=== PATIENT | male | born 1975 | race Caucasian/White ===

== ENCOUNTER 2017-11-25 17:28 | Emergency (ER) | payer OTHER, SELFPAY | END 2017-11-25 18:04 | disposition home or self-care (01) | PROVIDERS: Emergency Provider Nurse Practitioner Family; Family Provider Family Medicine; Visit Provider Nurse Practitioner Family | DX: R05 Cough (principal); I10 Essential (primary) hypertension | CPT/HCPCS: 87804; 99201 ==

== ENCOUNTER 2018-01-17 15:11 | Emergency (ER) | payer OTHER, SELFPAY ==
[2018-01-17 15:30] VITALS: BP 144/88; PULSE 88; RESP 20; TEMP 36.8; O2SAT 98; BMI 33.0
[2018-01-17 15:43] VITALS: BP 140/82; PULSE 88; RESP 20; TEMP 36.8
--- NOTE | 2018-01-17 15:44 | HMH.EDUTC ---
[facility] [place] Clinical Impression: Skin problem Disposition: Home, Self-Care Condition on Discharge: Good Instructions: DI for Abrasion Additional Instructions: Keep area clean and dry Apply medication as prescribed REturn if needed Follow up with family doctor if you notice and redness, streaks swelling or warmth to the area or straight to ER Prescriptions: Bacitracin [Bacitracin Oint 0.9GM UDP] 1 each TP TID #30 packet Referrals: Ceasar Guerra MD [Primary Care Provider] - Time of Disposition: 16:05 Medical Decision Making - Medical Records Medical records reviewed: Yes: I reviewed the patient's medical records. Vital Signs: 01/17/18 15:30 01/17/18 15:43 Temperature 98.2 F 98.2 F Temperature Source Temporal Artery Scan Pulse Rate 88 Pulse Rate [Right] 88 Respiratory Rate 20 20 Blood Pressure 140/82 Blood Pressure [Right Arm] 144/88 Blood Pressure Mean [Right Arm] 106 Blood Pressure Source [Right Arm] Automatic Cuff Blood Pressure Position [Right Arm] Sitting 02 Sat by Pulse Oximetry 98 Oxygen Delivery Method Room Air - Alexander Inquiry Pt receiving controlled substance: No Alexander was queried for this patient: No [facility] [place] - General Stated complaint: spot on left arm Mode of Arrival: Ambulatory Source of Information: Patient Limitations: No Limitations Description of Symptoms (Recalled from Triage Doc. by RN): SORE ON LEFT ARM X1 WK HEENT Symptoms (Recalled from RN notes): No Resp Symptoms (Recalled from RN notes): No Skin Symptoms (Recalled from RN notes): Yes MS Symptoms (Recalled from RN notes): No Functional Status (Recalled from RN notes): N - History of Present Illness Provider Complaint: Patient state that he has had a sore on his left upper arm for over a week States that area is not sore and looks like it may be healing because it has a scab on it but someone told him he needed to get it looked at because it could be a spider bite - Related Data Previous Rx's Medication Instructions Recorded Bacitracin [Bacitracin Oint 0.9GM 1 each TP TID #30 packet 01/17/18 UDP] Allergies Allergy/AdvReac Type Severity Reaction Status Date / Time No Known Allergies Allergy Verified 01/17/18 15:42 - Worker's Comp Is this a Worker's Comp case?: No [facility] History I have reviewed the patient's past medical history: Yes - Social History Alcohol Intake: never - Psychiatric History Expresses thoughts of harming self/others: None Suicide Plan Description: No Plan ROS Obtained: Yes All systems reviewed & no additional complaints Physical Exam - General General appearance: alert, in no apparent distress - ENT ENT exam: Present: normal exam, normal oropharynx, mucous membranes moist, TM's normal bilaterally, normal external ear exam - Respiratory Respiratory exam: Present: normal lung sounds bilaterally. Absent: respiratory distress - Cardiovascular Cardiovascular exam: Present: regular rate - Abdominal Exam Abdominal exam: Present: soft, normal bowel sounds. Absent: distention, tenderness, guarding - Neurological Exam Neurological exam: Present: alert, oriented X3 - Skin Skin exam: Present: other - Expanded Skin Exam Type of lesion: Present: other Description: Absent: tenderness, swelling, discharge 1 - small 1x1 scabbed area - Other Other exam information: Small scabbed over sore with no swelling, or redness on left upper arm that appears to be healing, looks like a scratch area Patient state that it has been there for over a week. Area appears to be healing
--- NOTE | 2018-01-17 15:50 | ED_ITS ---
[facility] [place] Clinical Impression: Skin problem Disposition: Home, Self-Care Condition on Discharge: Good Instructions: DI for Abrasion Additional Instructions: Keep area clean and dry Apply medication as prescribed REturn if needed Follow up with family doctor if you notice and redness, streaks swelling or warmth to the area or straight to ER Prescriptions: Bacitracin [Bacitracin Oint 0.9GM UDP] 1 each TP TID #30 packet Referrals: Ceasar Guerra MD [Primary Care Provider] - Time of Disposition: 16:05 Medical Decision Making - Medical Records Medical records reviewed: Yes: I reviewed the patient's medical records. Vital Signs: 01/17/18 15:30 01/17/18 15:43 Temperature 98.2 F 98.2 F Temperature Source Temporal Artery Scan Pulse Rate 88 Pulse Rate [Right] 88 Respiratory Rate 20 20 Blood Pressure 140/82 Blood Pressure [Right Arm] 144/88 Blood Pressure Mean [Right Arm] 106 Blood Pressure Source [Right Arm] Automatic Cuff Blood Pressure Position [Right Arm] Sitting 02 Sat by Pulse Oximetry 98 Oxygen Delivery Method Room Air - Alexander Inquiry Pt receiving controlled substance: No Alexander was queried for this patient: No [facility] [place] - General Stated complaint: spot on left arm Mode of Arrival: Ambulatory Source of Information: Patient Limitations: No Limitations Description of Symptoms (Recalled from Triage Doc. by RN): SORE ON LEFT ARM X1 WK HEENT Symptoms (Recalled from RN notes): No Resp Symptoms (Recalled from RN notes): No Skin Symptoms (Recalled from RN notes): Yes MS Symptoms (Recalled from RN notes): No Functional Status (Recalled from RN notes): N - History of Present Illness Provider Complaint: Patient state that he has had a sore on his left upper arm for over a week States that area is not sore and looks like it may be healing because it has a scab on it but someone told him he needed to get it looked at because it could be a spider bite - Related Data Previous Rx's Medication Instructions Recorded Bacitracin [Bacitracin Oint 0.9GM 1 each TP TID #30 packet 01/17/18 UDP] Allergies Allergy/AdvReac Type Severity Reaction Status Date / Time No Known Allergies Allergy Verified 01/17/18 15:42 - Worker's Comp Is this a Worker's Comp case?: No [facility] History I have reviewed the patient's past medical history: Yes - Social History Alcohol Intake: never - Psychiatric History Expresses thoughts of harming self/others: None Suicide Plan Description: No Plan ROS Obtained: Yes All systems reviewed & no additional complaints Physical Exam - General General appearance: alert, in no apparent distress - ENT ENT exam: Present: normal exam, normal oropharynx, mucous membranes moist, TM's normal bilaterally, normal external ear exam - Respiratory Respiratory exam: Present: normal lung sounds bilaterally. Absent: respiratory distress - Cardiovascular Cardiovascular exam: Present: regular rate - Abdominal Exam Abdominal exam: Present: soft, normal bowel sounds. Absent: distention, tenderness, guarding - Neurological Exam Neurological exam: Present: alert, oriented X3 - Skin Skin exam: Present: other - Expanded Skin Exam Type of lesion: Present: other Description: Absent: tenderness, swell
== END 2018-01-17 16:05 | disposition home or self-care (01) ==
PROVIDERS: Emergency Provider Nurse Practitioner; Family Provider Family Medicine; PCP Family Medicine
DX: L08.89 Other specified local infections of the skin and subcutaneous tissue (principal)
CPT/HCPCS: 99202

== ENCOUNTER → 2020-10-23 08:08 | Outpatient (CLI) | payer OTHER, SELFPAY ==
--- NOTE | 2020-10-23 08:09 | CA_ITS ---
APPROVED REPORT Production Manager: Emma Martell RVT Laterality: Bilateral Study Quality: Good Indications: facial numbness,LT HAND NUMBNESS Risk Factors Hypertension: Doppler Spectral Velocity Analysis ECA (R) 96.20/21.40 cm/s ECA (L) 104.80/15.70 cm/s dICA (R) 82.30/37.40 cm/s dICA (L) 93.50/38.90 cm/s Amie (R) 64.20/31.00 cm/s Amie (L) 84.50/35.90 cm/s pICA (R) 80.20/28.90 cm/s pICA (L) 93.50/28.40 cm/s dCCA (R) 83.40/24.60 cm/s dCCA (L) 83.10/27.70 cm/s pCCA (R) 79.10/17.10 cm/s pCCA (L) 111.50/29.20 cm/s Vert (R) 47.00/13.90 cm/s Vert (L) 40.60/15.00 cm/s ICA/CCA 0.99 ICA/CCA 1.13 Findings Study suggests no evidence of stenosis seen in the bilateral internal cartoid arteries. Antegrade flow seen bilateral vertebral arteries. Conclusion Study suggests no evidence of stenosis seen in the bilateral internal cartoid arteries. Antegrade flow seen bilateral vertebral arteries. Electronically signed by : Natan Garcia MD 10/23/2020 15:13:02
== END ==
LOC: RT 08:09
PROVIDERS: PCP Family Medicine; Visit Provider Internal Medicine Cardiovascular Disease
DX: R06.00 Dyspnea, unspecified (principal); R07.9 Chest pain, unspecified; R20.0 Anesthesia of skin; I10 Essential (primary) hypertension; R60.0 Localized edema
CPT/HCPCS: 93306; 93880

== ENCOUNTER → 2020-12-07 17:54 | Outpatient (CLI) | payer OTHER, SELFPAY | PROVIDERS: PCP Family Medicine; Visit Provider Internal Medicine Cardiovascular Disease | DX: R06.81 Apnea, not elsewhere classified (principal); R06.00 Dyspnea, unspecified; R07.9 Chest pain, unspecified; R60.0 Localized edema; R20.0 Anesthesia of skin; I10 Essential (primary) hypertension | CPT/HCPCS: 95806 ==

== ENCOUNTER 2022-02-04 10:26 | Emergency (ER) | payer OTHER, SELFPAY ==
[2022-02-04 10:27] VITALS: BP 159/85; PULSE 81; RESP 18; TEMP 36.7; O2SAT 98; BMI 38.6
--- NOTE | 2022-02-04 10:38 | ECG_ITS ---
APPROVED REPORT Exam: Resting ECG HR:87 bpm ECG Measurements Heart Rate 87 AXES FL 160 P 71 QRSd 104 QRS -64 QT 358 T 69 QTc 403 Conclusion SINUS RHYTHM LEFT ANTERIOR FASCICULAR BLOCK [QRS AXIS <= -45, QR IN I, RS IN II] ABNORMAL ECG UNCONFIRMED REPORT Electronically signed by : Oumar Aguilar MD 02/04/2022 17:49:28
--- NOTE | 2022-02-04 10:42 | PC.NURSE ---
ed doc at bedside
[2022-02-04 10:43] VITALS: BMI 38.6
--- NOTE | 2022-02-04 10:54 | PC.NURSE ---
called dr lott per ed doc
--- NOTE | 2022-02-04 10:59 | PC.NURSE ---
ER at bedside for update on POC
--- NOTE | 2022-02-04 11:02 | HMH.EDGENADL ---
ED Disposition Clinical Impression: Numbness and tingling in left hand, Perioral numbness Disposition: Home, Self-Care Condition on Discharge: Good Additional Instructions: Please return to the ED as we discussed, specifically numbness, pain, difficulty walking or with coordination. Please see Dr. Guerra today at 430 Referrals: Ceasar Guerra MD [Primary Care Provider] - - Critical Care Critical Care Time: No Attestation: On 02/04/22, the high probability of a clinically significant, sudden or life threatening deterioration of the following system(s) required my full and direct attention, intervention and personal management. The time I documented below is in addition to time spent performing reported procedures but includes the following listed in this critical care notation. Medical Decision Making - Medical Records Medical records reviewed: Yes: I reviewed the patient's medical records. - Alexander Inquiry Pt receiving controlled substance: No Orders (Tests/Meds): ED MEDICATIONS Generic Name Dose Route Start Last Admin Trade Name Freq PRN Reason Stop Dose Admin Sodium Chloride 10 ml 02/04/22 10:45 Sodium Chloride 0.9% 10ml Flush Syringe IV 03/06/22 10:44 NEEDED PRN Maintain IV Site Medical Decision Narrative: Patient is a fairly healthy 46-year-old male presents the ED today for further evaluation of left hand and left-sided perioral numbness, patient is well-appearing nurse evaluation, somewhat hypertensive with blood pressure in the 150s over 90s, nontachycardic, no fever, no increased respiratory effort is well-appearing on exam. Patient symptoms are currently resolved, and avoid been occurring for 36 to that time, multiple etiologies considered for this including a differential of acute stroke, TIA, stuttering TIA, hypertensive emergency, stress response. Symptoms not necessarily correlate with a central cause. given that he is not currently having any neurologic deficits we did not need to investigate further under stroke protocol, and that he has no significant vital signs alterations in mental preceding history of severe nausea or vomiting, we do not suspect electrolyte abnormalities do not need to obtain blood work. I have discussed the case with Dr. Guerra from his primary care office, who will be able to see him at 430 today, as he has not seen a physician in some years on chart review. Patient was in primary care appointment at 4:15 today, I have discussed further symptoms of stroke with the patient including left-sided numbness, weakness, facial droop, confusion, and that it is very important to present as early as possible with the symptoms, patient education given on stroke and stroke treatment and management, given the patient is well-appearing and able to ambulate, will be able to be discharged at this time. General Adult HPI - General Stated complaint: numbness Time Seen by Provider: 02/04/22 10:33 - History of Present Illness HPI narrative: Patient 46-year-old male presents the ED today for evaluation of left fingertip numbness and perioral numbness which occurred earlier today. Patient has a history of hyperlipidemia, but has been in his physician in a couple of years, states that he does not have any history of diabetes, heart disease, non-smoker, no lung disease, was independently, but states that he is very busy at,, and is a high stress environment. Patient states that his numbness occurred in the left fingertips of all 5 fingers, states that this only occurred for 30 seconds to a minute not associated with any symptoms of weakness in the left upper extremity or left lower extremity, and he is not having any difficulty walking. Patient also states that he was having some left-sided perioral numbness, all of the symptoms of numbness in the hand and mouth have resolved within a minute, states that they have been very minimizing. Patient states he has been taking his stati
[2022-02-04 11:04] VITALS: BP 162/86; PULSE 81; RESP 18; O2SAT 98
[2022-02-04 11:10] VITALS: BP 162/86; PULSE 81; RESP 20; TEMP 36.7; O2SAT 98
== END 2022-02-04 11:11 | disposition home or self-care (01) ==
PROVIDERS: Emergency Provider Student in an Organized Health Care Education/Training Program; PCP Family Medicine
DX: R20.0 Anesthesia of skin (principal); I10 Essential (primary) hypertension; E78.5 Hyperlipidemia, unspecified
CPT/HCPCS: 93005; 99283

== ENCOUNTER → 2022-02-18 09:57 | Outpatient (CLI) | payer OTHER, SELFPAY ==
--- NOTE | 2022-02-18 10:00 | MR_ITS ---
FINAL REPORT CLINICAL HISTORY: PARESTHESIAS IN LT HAND, TEMPORAL HEADACHES X1-2 WEEKS. 27ML PROHANCE FINDINGS: Multiplanar MR imaging of the brain was performed without and with contrast. There is no evidence of intracranial hemorrhage or mass. No abnormal extra-axial fluid collection is seen. The ventricular size is within normal limits. There is no evidence of shift of the midline structures. The posterior fossa and brainstem have an unremarkable appearance. No area of abnormal restricted diffusion is identified. No abnormal contrast enhancement is seen. There is moderate mucoperiosteal thickening involving both maxillary sinuses, sphenoid, and ethmoid air cells consistent with chronic sinusitis. IMPRESSION: No acute intracranial abnormality identified. Chronic sinusitis. Reviewed, Interpreted and Dictated by Manny Abel MD Transcribed by Genet Matute Authenticated by Manny Abel MD on 02/18/2022 02:04:06 PM [facility]
== END ==
LOC: RAD 09:57
PROVIDERS: PCP Family Medicine; Visit Provider Family Medicine
DX: R20.2 Paresthesia of skin (principal)
CPT/HCPCS: 70553; A9576

== ENCOUNTER 2022-11-24 13:11 | Emergency (ER) | payer OTHER, SELFPAY ==
--- NOTE | 2022-11-24 14:21 | EXP.UTC ---
Discharge Plan Disposition Patient Disposition: Home, Self-Care Condition: Good Prescriptions Prescriptions: New ondansetron 4 mg Tablet,Disintegrating 4 mg PO Q8H PRN (Reason: Nausea) Qty: 20 0RF No Action losartan-hydrochlorothiazide 50-12.5 mg tablet 1 tab PO DAILY Qty: 90 3RF Referrals Follow up/Referrals: Ceasar Guerra MD [Primary Care Provider] - See instructions Activity Restrictions/Add. Instructions Additional Instructions/Restrictions: Drink plenty of fluids. Take tylenol or ibuprofen for pain or fever. Take the medication as directed. Follow up with your regular doctor. GO TO THE ER FOR ANY WORSENING SYMPTOMS Clinical Impressions Clinical Impression: Gastroenteritis Stand Alone Forms Stand Alone Forms: Work/School Release Instructions Patient Instructions: DI for Viral Gastroenteritis -- Adult, Ondansetron Discharge ED Provider: Geovanny Caceres [facility] General Stated complaint: Diarrhea Time Seen by Provider: 11/24/22 14:21 History of Present Illness Provider Complaint: He states that since early this morning he has had n/v/d. He has had abdominal cramping at times too. He denies any fever, but he has had chills. Related Data Previous Rx's Medication Instructions Recorded losartan 50 mg-hydrochlorothiazide 1 tab PO DAILY #90 tabs 11/05/21 12.5 mg tablet ondansetron 4 mg disintegrating 4 mg PO Q8H PRN Nausea #20 tabs 11/24/22 tablet Allergies Allergy/AdvReac Type Severity Reaction Status Date / Time No Known Allergies Allergy Verified 11/24/22 14:36 [facility] Disclaimer: The information contained in this section may have been updated after the patient was seen, as this information can be updated by other users. Social History Smoking Status: Never smoker alcohol intake: never substance use type: denies use current occupational status: employed Travel in the last 8 weeks: Inside the [place] current occupational exposures/hazards: No ROS Obtained: Yes All systems reviewed & no additional complaints except as documented Constitutional Constitutional: Denies chills, Denies fever(s) and Reports poor appetite ENT Ears, Nose, Mouth, and Throat: Denies dizziness and Denies sore throat Cardiovascular Cardiovascular: Denies dyspnea Respiratory Respiratory: Denies chest congestion, Denies cough and Denies dyspnea Gastrointestinal Gastrointestingal: Reports as per HPI; Denies abdominal pain, hematemesis, hematochezia or melena Genitourinary Male Genitourinary: Denies hematuria, Denies urinary frequency, Denies urinary hesitancy, Denies urinary incontinence and Denies urinary urgency Musculoskeletal Musculoskeletal: Denies arthralgias Integumentary/Breasts Skin/Breast: Denies rash Neurologic Neurologic: Denies dizziness Physical Exam General General appearance: alert and in no apparent distress Head Head exam: atraumatic and normocephalic Eye Eye exam: Present normal appearance, PERRL and EOMI ENT ENT exam: Present normal exam, normal oropharynx, mucous membranes moist, TM's normal bilaterally and normal external ear exam Neck Neck exam: Present normal inspection, full ROM and trachea midline; Absent tenderness, meningismus or lymphadenopathy Chest Chest inspection: Present normal inspection and symmetric chest wall rise; Absent tenderness, rash or abscess Respiratory Respiratory exam: Present normal lung sounds bilaterally; Absent respiratory distress, wheezes or stridor Cardiovascular Cardiovascular exam: Present regular rate and normal rhythm; Absent irregular rhythm, systolic murmur, diastolic murmur or JVD Abdominal Exam Abdominal exam: Present soft and normal bowel sounds; Absent distention, tenderness, guarding, rebound, rigidity, psoas sign, obturator sign, heel tap sign, Eason's sign, Rovsing's sign or tenderness at McBurney's Point Extremities Exam Extremities exam
[2022-11-24 14:30] VITALS: BP 134/71; PULSE 89; RESP 17; TEMP 36.6; O2SAT 98; BMI 37.3
[2022-11-24 15:15] VITALS: BP 134/71; PULSE 89; RESP 17; TEMP 36.6
== END 2022-11-24 15:16 | disposition home or self-care (01) ==
PROVIDERS: Emergency Provider Nurse Practitioner Family; PCP Family Medicine
DX: K52.9 Noninfective gastroenteritis and colitis, unspecified (principal)
CPT/HCPCS: 99212; G0463

== ENCOUNTER 2023-01-19 23:50 | Emergency (ER) | payer OTHER, SELFPAY ==
--- NOTE | 2023-01-19 23:48 | ECG_ITS ---
APPROVED REPORT Exam: Resting ECG HR:65 bpm ECG Measurements Heart Rate 65 AXES ID 151 P 57 QRSd 98 QRS -8 QT 393 T 7 QTc 405 Conclusion SINUS RHYTHM WITH SINUS ARRHYTHMIA NORMAL ECG UNCONFIRMED REPORT Electronically signed by : Oumar Aguilar MD 01/20/2023 14:12:46
[2023-01-19 23:51] VITALS: BP 167/96; PULSE 65; RESP 22; TEMP 36.9; O2SAT 97; BMI 37.3
[2023-01-20] VITALS: BP 160/89; PULSE 68; RESP 16; O2SAT 96
--- NOTE | 2023-01-20 | XR_ITS ---
PROCEDURE INFORMATION: Exam: XR Chest Exam date and time: 01/20/2023 12:07 AM Age: 47 years old Clinical indication: Sternal or substernal pain; Additional info: Cp TECHNIQUE: Imaging protocol: Radiologic exam of the chest. Views: 2 views. COMPARISON: CR Chest 06/27/2019 9:34 PM FINDINGS: Lungs: No focal consolidation or mass. Pleural spaces: No pleural effusion or pneumothorax. Heart/Mediastinum: Heart size is mildly enlarged, stable. Diaphragm: Stable mild elevation right hemidiaphragm. Bones/joints: No acute osseous abnormality. No fracture. IMPRESSION: Stable mild cardiomegaly.
[2023-01-20 00:06] LABS: Basophils # 0.1 K/mm3 (0-0.2); Basophils % 0.8 % (0.1-2.0); Eosinophils # 0.3 K/mm3 (0.0-0.4); Eosinophils % 3.4 % (0.1-12.0); Hematocrit 47.3 % (42.0-52.0); Hemoglobin 15.8 g/dL (14.1-18.0); Lymphocytes # 1.9 K/mm3 (0.7-4.5); Lymphocytes % 24.9 % (10-50); Mean Corpuscular HGB Conc 33.3 g/dL (31.8-35.4); Mean Corpuscular Hemoglobin 29.2 pg (27.0-31.2); Mean Corpuscular Volume 87.7 fl (80-94); Mean Platelet Volume 7.5 fl (7.4-10.4); Monocytes # 0.6 K/mm3 (0.1-1.0); Monocytes % 8.2 % (1.7-9.3); Neutrophils # 4.7 K/mm3 (1.8-7.8); Neutrophils % 62.7 % (37.0-80.0); Platelet Count 278 K/mm3 (142-424); Red Cell Distribution Width 13.4 % (11.5-17.5); White Blood Count 7.5 K/mm3 (4.8-10.8)
--- NOTE | 2023-01-20 00:11 | HMH.EDCP ---
Discharge Plan Disposition Patient Disposition: Home, Self-Care Condition: Good Prescriptions Prescriptions: New omeprazole magnesium [Prilosec OTC] 20 mg tablet,delayed release (DR/EC) 20 mg PO BID 10 Days Qty: 20 0RF No Action glimepiride 2 mg tablet 2 mg PO DAILY Label Comments: TAKE 1 TABLET BY MOUTH ONCE DAILY. celecoxib [Celebrex] 50 mg Capsule 50 mg PO BID losartan-hydrochlorothiazide 50-12.5 mg tablet 1 tab PO DAILY Referrals Follow up/Referrals: Ceasar Guerra MD [Primary Care Provider] - See instructions Clinical Impressions Clinical Impression: Abdominal left upper quadrant tenderness, Chest pain due to GERD Discharge ED Provider: Kay Patrick Chest Pain HPI General Chief Complaint: Chest Pain Stated Complaint: chest pain Time Seen by Provider: 01/20/23 00:27 Mode of Arrival: Ambulatory Source of Information: Patient and Spouse Limitations: No Limitations History of Present Illness HPI narrative: Patient is a 47-year-old male who is complaining about left-sided chest pain but points to his left upper quadrant pain. Patient has been having that chest pain since 11:00 this evening. He took meloxicam for his right shoulder arthritis and pain start 11:00 at night. He did take it with food. He has been having some issues with spicy food irritating stomach and has cut back on spicy food. Does have hypertension, obesity, diabetes but no history of CO or hyperlipidemia or smoker. complaint: chest pain indicative of cardiac Onset (ago): hour(s) (2) Time: 23:00 Duration: constant Activity at onset: during rest Pain location: substernal Severity: mild Severity scale (1-10): 4 Quality: tightness Pain radiation: none Relieving factors: nothing Exacerbating factors: nothing Context: recent illness Associated symptoms: dyspnea Risk Factors for CAD: Hypertension and Diabetes Treatments prior to or on arrival for Cardiac Chest Pain: none FABIEN Score for Non-Stemi Age of Patient: 40-49 years old Heart Rate: 50-69 bpm Systolic Blood Pressure: 120-139 mmhg Serum Creatinine: 0.80-1.19 mg/dl CHF [place] Class: I-No CHF Other Risk Factors: None Non-Stemi Risk Score: 69 Related Data Home Medications Medication Instructions Recorded Confirmed celecoxib 50 mg capsule (Celebrex) 50 mg PO BID Rheumatoid arthritis 01/20/23 01/20/23 glimepiride 2 mg tablet 2 mg PO DAILY Diabetes 01/20/23 01/20/23 losartan 50 mg-hydrochlorothiazide 1 tab PO DAILY High blood pressure 01/20/23 01/20/23 12.5 mg tablet Previous Rx's Medication Instructions Recorded omeprazole magnesium 20 mg 20 mg PO BID 10 days #20 tabs 01/20/23 tablet,delayed release (Prilosec OTC) Allergies Allergy/AdvReac Type Severity Reaction Status Date / Time No Known Allergies Allergy Verified 11/24/22 14:36 [facility] Disclaimer: The information contained in this section may have been updated after the patient was seen, as this information can be updated by other users. Medical History (Updated 01/20/23 @ 01:33 by Kay Patrick MD) High blood pressure Rheumatoid arteritis Type 2 diabetes mellitus Social History Smoking Status: Never smoker alcohol intake: never substance use type: denies use current occupational status: employed Travel in the last 8 weeks: Inside the [place] current occupational exposures/hazards: No ROS Obtained: Yes All systems reviewed & no additional complaints except as documented Constitutional Constitutional: Reports system reviewed and no additional complaints, except as documented Eyes Eyes: Reports system reviewed and no additional complaints, except as documented ENT Ears, Nose, Mouth, and Throat: Reports system reviewed and no additional complaints, except as documented Cardiovascular Cardiovascular: Reports system reviewed and no additional complaints, except as documented
[2023-01-20 00:13] VITALS: BP 148/79; PULSE 67; RESP 16; O2SAT 96
[2023-01-20 00:13] LABS: Activated Partial Thrombo Time 26.1 seconds (22.8-30.6); INR 0.95 (0.9-1.1); Prothrombin Time 10.3 seconds (10.1-12.5)
[2023-01-20 00:14] LABS: Alanine Aminotransferase 31 U/L (12-78); Albumin Level 4.2 g/dl (3.5-5.0); Albumin/Globulin Ratio 1.6 (1.1-1.8); Alkaline Phosphatase 44 U/L (38-126); Anion Gap 4.9 mEq/L (5-15); Aspartate Amino Transferase 28 U/L (17-59); Bilirubin,Total 0.8 mg/dl (0.2-1.3); Blood Urea Nitrogen 16 mg/dl (9-20); Calcium 8.8 mg/dl (8.4-10.2); Carbon Dioxide 29 mmol/L (22.0-30.0); Chloride 110 mmol/L (98-107); Estimated Glomerular Filt Rate 72 ml/min (>60); GFR (African American) 87 ML/MIN (>60); Globulin 2.6 g/dL (1.3-3.2); Glucose 84 mg/dl (74-100); Potassium 3.9 mmoL/L (3.5-5.1); Sodium 140 mmol/L (136-145); Total Protein,Serum 6.8 g/dl (6.3-8.2)
[2023-01-20 00:23] LABS: D-Dimer 0.41 ug/mL (0.0-0.5)
[2023-01-20 00:26] LABS: Troponin I < 0.01 ng/ml (0.00-0.034)
[2023-01-20 00:30] VITALS: BP 135/76; PULSE 58; RESP 15; O2SAT 94
[2023-01-20 01:00] VITALS: BP 142/81; PULSE 64; RESP 17; O2SAT 97
[2023-01-20 01:30] VITALS: BP 145/77; PULSE 54; RESP 14; O2SAT 97
[2023-01-20 01:42] VITALS: BP 117/69; PULSE 75; RESP 20; TEMP 36.8; O2SAT 98
== END 2023-01-20 01:49 | disposition home or self-care (01) ==
PROVIDERS: Emergency Provider Emergency Medicine; PCP Family Medicine
DX: K21.9 Gastro-esophageal reflux disease without esophagitis (principal); R07.89 Other chest pain; R10.12 Left upper quadrant pain; I10 Essential (primary) hypertension; E11.9 Type 2 diabetes mellitus without complications; E66.9 Obesity, unspecified; M06.9 Rheumatoid arthritis, unspecified
CPT/HCPCS: 71046; 80053; 84484; 85025; 85378; 85610; 85730; 93005; 96374; 99285

== ENCOUNTER 2023-05-02 22:46 | Emergency (ER) | payer OTHER, SELFPAY ==
[2023-05-02 23:05] VITALS: BP 130/78; PULSE 77; RESP 18; TEMP 36.6; O2SAT 96; BMI 39.7
--- NOTE | 2023-05-02 23:10 | HMH.EDWNDL ---
Discharge Plan Disposition Patient Disposition: Home, Self-Care Chief Complaint: Wound/Laceration Prescriptions Prescriptions: No Action glimepiride 2 mg tablet 2 mg PO DAILY Label Comments: TAKE 1 TABLET BY MOUTH ONCE DAILY. celecoxib [Celebrex] 50 mg Capsule 50 mg PO BID losartan-hydrochlorothiazide 50-12.5 mg tablet 1 tab PO DAILY omeprazole magnesium [Prilosec OTC] 20 mg tablet,delayed release (DR/EC) 20 mg PO BID 10 Days Qty: 20 0RF Referrals Follow up/Referrals: Ceasar Guerra MD [Primary Care Provider] - See instructions Clinical Impressions Clinical Impression: Abrasion Instructions Patient Instructions: DI for Abrasion Discharge ED Provider: Ondina (ED),Bhavesh Baptiste Wound/Laceration HPI General Chief Complaint: Wound/Laceration Stated Complaint: cut on R leg ao Time Seen by Provider: 05/02/23 23:10 Mode of Arrival: Ambulatory Source of Information: Patient and Medical Record Limitations: No Limitations Description of Symptoms (Recalled from ER Triage Doc. by RN): Patient arrives to ed c c/o abrasion to his right calf. States that he was walking down the basement stairs when one collapsed under him. No other injuries. Patient states that he is a diabetic and has not had a recent tetanus shot. History of Present Illness HPI narrative: abrasion rt lower leg on nail - Onset (ago): hour(s) Extremity Location: Right: lower leg Place: home Patient tetanus UTD: No Context: accidental Associated symptoms: none Related Data Home Medications Medication Instructions Recorded Confirmed celecoxib 50 mg capsule (Celebrex) 50 mg PO BID Rheumatoid arthritis 01/20/23 01/20/23 glimepiride 2 mg tablet 2 mg PO DAILY Diabetes 01/20/23 01/20/23 losartan 50 mg-hydrochlorothiazide 1 tab PO DAILY High blood pressure 01/20/23 01/20/23 12.5 mg tablet Previous Rx's Medication Instructions Recorded omeprazole magnesium 20 mg 20 mg PO BID 10 days #20 tabs 01/20/23 tablet,delayed release (Prilosec OTC) Allergies Allergy/AdvReac Type Severity Reaction Status Date / Time No Known Allergies Allergy Verified 11/24/22 14:36 [facility] Disclaimer: The information contained in this section may have been updated after the patient was seen, as this information can be updated by other users. Medical History (Updated 05/02/23 @ 23:15 by Bhavesh GASTON)MD) High blood pressure Rheumatoid arteritis Type 2 diabetes mellitus Social History Smoking Status: Never smoker alcohol intake: never substance use type: denies use current occupational status: employed Travel in the last 8 weeks: Inside the [place] current occupational exposures/hazards: No ROS Obtained: Yes All systems reviewed & no additional complaints except as documented Physical Exam General General appearance: alert Head Head exam: normocephalic Eye Eye exam: Present PERRL and EOMI ENT ENT exam: Present mucous membranes moist Neck Neck exam: Present trachea midline Respiratory Respiratory exam: Absent respiratory distress Cardiovascular Cardiovascular exam: Present regular rate Extremities Exam Extremities exam: Present other (abrasion rt lower leg with neurovascular intact ) Neurological Exam Neurological exam: Present alert, oriented X3 and CN II-XII intact; Absent motor sensory deficit Psychiatric Psychiatric exam: Present normal affect Skin Skin exam: Present other (2 cm abrasion rt lower leg - neurovascular ok ) Medical Decision Making Medical Records Medical records reviewed: Yes I reviewed the patient's medical records. Alexander Inquiry Pt receiving controlled substance: No Vital Signs: 05/02/23 23:05 Temperature 97.9 F Temperature Source Oral Pulse Rate [Apical] 77 Respiratory Rate 18 Blood Pressure [Right Arm] 130/78 Blood Pressure Mean [Right Arm] 95 Blood Pressure Source [Right Arm] Automatic Cuf
[2023-05-02 23:12] VITALS: BP 131/72; PULSE 68; RESP 19; TEMP 36.8; O2SAT 98
--- NOTE | 2023-05-02 23:21 | PC.NURSE ---
Patients order for a tdap shot accidentally ordered as tenivac, however, it should have been for adicell. IM injection in the right gluteus franklyn given. Lot number [id number], Expiration date FEB 03 2025.
== END 2023-05-02 23:31 | disposition home or self-care (01) ==
PROVIDERS: Emergency Provider Emergency Medicine; PCP Family Medicine
DX: S80.811A Abrasion, right lower leg, initial encounter (principal); E11.9 Type 2 diabetes mellitus without complications; M06.9 Rheumatoid arthritis, unspecified; W10.8XXA Fall (on) (from) other stairs and steps, initial encounter; Z23 Encounter for immunization
CPT/HCPCS: 96372; 99283; 99284

== ENCOUNTER 2023-06-03 03:01 | Emergency (ER) | payer OTHER, SELFPAY ==
[2023-06-03] VITALS (9 sets, daily range): BP systolic 117–156; BP diastolic 62–83; PULSE 60–71; RESP 14–20; TEMP 36.4–36.7; O2SAT 96–98; BMI 38.7
--- NOTE | 2023-06-03 03:14 | ECG_ITS ---
APPROVED REPORT Exam: Resting ECG HR:64 bpm ECG Measurements Heart Rate 64 AXES CA 157 P 61 QRSd 105 QRS -4 QT 399 T 34 QTc 409 Conclusion SINUS RHYTHM NORMAL ECG UNCONFIRMED REPORT Electronically signed by : Oumar Aguilar MD 06/03/2023 21:14:37
--- NOTE | 2023-06-03 03:39 | XR_ITS ---
PROCEDURE INFORMATION: Exam: XR Left Foot Exam date and time: 06/03/2023 3:55 AM Age: 47 years old Clinical indication: Pain; Foot; Left; Additional info: Pain no accident TECHNIQUE: Imaging protocol: Radiologic exam of the left foot. Views: 3 or more views. COMPARISON: CR [id number] XR foot LT min 3V 08/14/2018 8:58 AM FINDINGS: Bones/joints: Normal. Soft tissues: Normal. IMPRESSION: No acute findings.
--- NOTE | 2023-06-03 03:40 | XR_ITS ---
PROCEDURE INFORMATION: Exam: XR Chest Exam date and time: 06/03/2023 3:53 AM Age: 47 years old Clinical indication: Sternal or substernal pain; Additional info: Cp TECHNIQUE: Imaging protocol: Radiologic exam of the chest. Views: 2 views. COMPARISON: CR XR CHEST 2V 01/20/2023 12:07 AM FINDINGS: Lungs: Unremarkable. No consolidation. Pleural spaces: Unremarkable. No pleural effusion. No pneumothorax. Heart/Mediastinum: Unremarkable. No cardiomegaly. Bones/joints: Unremarkable. IMPRESSION: No acute findings.
[2023-06-03 03:56] LABS: Alanine Aminotransferase 30 U/L (12-78); Albumin/Globulin Ratio 1.4 (1.1-1.8); Alkaline Phosphatase 62 U/L (38-126); Anion Gap 12.1 mEq/L (5-15); Aspartate Amino Transferase 28 U/L (17-59); Bilirubin,Total 0.8 mg/dl (0.2-1.3); Blood Urea Nitrogen 14 mg/dl (9-20); Calcium 8.3 mg/dl (8.4-10.2); Carbon Dioxide 26 mmol/L (22.0-30.0); Chloride 108 mmol/L (98-107); Creatinine Clearance Estimated 163 mL/min (50-200); Estimated Glomerular Filt Rate 80 ml/min (>60); GFR (African American) 97 ML/MIN (>60); Globulin 2.8 g/dL (1.3-3.2); Glucose 105 mg/dl (74-100); Potassium 4.1 mmoL/L (3.5-5.1); Sodium 142 mmol/L (136-145); Total Protein,Serum 6.8 g/dl (6.3-8.2)
[2023-06-03 04:01] LABS: C-Reactive Protein 9.2 mg/L (0-4)
[2023-06-03 04:03] LABS: Basophils % 0.7 % (0.1-2.0); Eosinophils # 0.2 K/mm3 (0.0-0.4); Eosinophils % 2.7 % (0.1-12.0); Hematocrit 44.9 % (42.0-52.0); Hemoglobin 14.4 g/dL (14.1-18.0); Lymphocytes # 1.7 K/mm3 (0.7-4.5); Mean Corpuscular HGB Conc 32.1 g/dL (31.8-35.4); Mean Corpuscular Hemoglobin 27.9 pg (27.0-31.2); Mean Platelet Volume 7.7 fl (7.4-10.4); Monocytes # 0.6 K/mm3 (0.1-1.0); Monocytes % 8.5 % (1.7-9.3); Neutrophils # 4.3 K/mm3 (1.8-7.8); Neutrophils % 63.1 % (37.0-80.0); Platelet Count 246 K/mm3 (142-424); Red Blood Count 5.16 M/mm3 (4.60-6.20); Red Cell Distribution Width 13.2 % (11.5-17.5); White Blood Count 6.8 K/mm3 (4.8-10.8)
[2023-06-03 04:16] LABS: Procalcitonin 0.057 ng/mL (0.0-2.0); Troponin I < 0.01 ng/ml (0.00-0.034)
[2023-06-03 05:05] LABS: Uric Acid 5.1 mg/dl (3.5-8.5)
[2023-06-03 05:07] LABS: Erythrocyte Sedimentation Rate 22 mm/hr (0-15)
--- NOTE | 2023-06-03 05:24 | HMH.EDEXTP ---
Discharge Plan Disposition Patient Disposition: Home, Self-Care Chief Complaint: Extremity Problem,Nontraumatic Prescriptions Prescriptions: No Action glimepiride 2 mg tablet 2 mg PO DAILY Patient Comments: TAKE 1 TABLET BY MOUTH ONCE DAILY. celecoxib [Celebrex] 50 mg Capsule 50 mg PO BID losartan-hydrochlorothiazide 50-12.5 mg tablet 1 tab PO DAILY omeprazole magnesium [Prilosec OTC] 20 mg tablet,delayed release (DR/EC) 20 mg PO BID Referrals Follow up/Referrals: Ceasar Guerra MD [Primary Care Provider] - See instructions London Dunlap MD [Staff Physician] - See instructions Clinical Impressions Clinical Impression: Chest pain, Foot pain, left Stand Alone Forms Stand Alone Forms: Work/School Release Instructions Patient Instructions: DI for Chest Pain, DI for Foot Pain Discharge ED Provider: Ondina (ED),Bhavesh Baptiste Extremity Problem HPI General Chief complaint: Extremity Problem,Nontraumatic Stated complaint: Pain in left foot radiating up leg no injury Time Seen by Provider: 06/03/23 05:24 Mode of Arrival: Ambulatory Source of Information: Patient Limitations: No Limitations Description of Symptoms (Recalled from ER Triage Doc. by RN): pt arrives POV with an initial c/o L foot pain 09/07. this has been ongoing the last two days and woke him up tonight. pt states the pain pulsates and denies injury. upon talking with the pt he c/o L sided chest pain that is dull in nature /10 and SOA x1h. History of Present Illness HPI Narrative: pt with lt foot pain over the last few days - and worse tonight - does rad to lt leg some - no def back pain - also has some lt sided chest pain - MD Complaint: extremity pain Onset (ago): hour(s) Consistency: intermittent Location: left and lower extremity Associated symptoms: chest pain Related Data Home Medications Medication Instructions Recorded Confirmed celecoxib 50 mg capsule (Celebrex) 50 mg PO BID Rheumatoid arthritis 01/20/23 06/03/23 glimepiride 2 mg tablet 2 mg PO DAILY Diabetes 01/20/23 06/03/23 losartan 50 mg-hydrochlorothiazide 1 tab PO DAILY High blood pressure 01/20/23 06/03/23 12.5 mg tablet omeprazole magnesium 20 mg 20 mg PO BID Acid Reflux 06/03/23 06/03/23 tablet,delayed release (Prilosec OTC) Allergies Allergy/AdvReac Type Severity Reaction Status Date / Time No Known Allergies Allergy Verified 06/03/23 03:40 [facility] Disclaimer: The information contained in this section may have been updated after the patient was seen, as this information can be updated by other users. Medical History (Updated 06/03/23 @ 05:54 by Bhavesh Nj MD (ED)) High blood pressure Rheumatoid arteritis Type 2 diabetes mellitus Social History Smoking Status: Never smoker alcohol intake: never substance use type: denies use current occupational status: employed Travel in the last 8 weeks: Inside the [place] current occupational exposures/hazards: No ROS Obtained: Yes All systems reviewed & no additional complaints except as documented Physical Exam General General appearance: alert Head Head exam: normocephalic Eye Eye exam: Present PERRL and EOMI ENT ENT exam: Present mucous membranes moist Neck Neck exam: Absent trachea midline Respiratory Respiratory exam: Absent respiratory distress Cardiovascular Cardiovascular exam: Present regular rate Abdominal Exam Abdominal exam: Present soft Extremities Exam Extremities exam: Present full ROM and other (lt foot with no reddness or inc warmth ) Neurological Exam Neurological exam: Present alert, oriented X3 and CN II-XII intact; Absent motor sensory deficit Psychiatric Psychiatric exam: Present normal affect Skin Skin exam: Absent rash Medical Decision Making Medical Records Medical records reviewed: Yes I reviewed the patient's medical records. Alexander Inquiry Pt receivi
== END 2023-06-03 05:58 | disposition home or self-care (01) ==
PROVIDERS: Emergency Provider Emergency Medicine; PCP Family Medicine
DX: R07.9 Chest pain, unspecified (principal); R06.02 Shortness of breath; M79.672 Pain in left foot; M06.9 Rheumatoid arthritis, unspecified; E11.9 Type 2 diabetes mellitus without complications
CPT/HCPCS: 71046; 73630; 80053; 84145; 84484; 84550; 85025; 85651; 86140; 93005; 93041; 96361; 96374; 96375; 99285

== ENCOUNTER 2023-09-30 18:39 | Emergency (ER) | payer OTHER, SELFPAY ==
--- NOTE | 2023-09-30 19:26 | XR_ITS ---
PROCEDURE INFORMATION: Exam: XR Right Tibia and Fibula Exam date and time: 09/30/2023 7:22 PM Age: 48 years old Clinical indication: Injury or trauma; Other: Walking; Blunt trauma; Lower leg; Right; Additional info: Injured today, PT stated he heard a popping noise. TECHNIQUE: Imaging protocol: Radiologic exam of the right tibia and fibula. Views: 2 views. COMPARISON: No relevant prior studies available. FINDINGS: Bones/joints: No fracture. Normal alignment. Smooth short segment chronic appearing periosteal calcification along the posteromedial proximal tibial diaphysis likely representing remote prior injury. Minimal superior patellar spurring. Soft tissues: Normal. 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 IMPRESSION: 1. No acute findings. 2. 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 Dedicated foot radiographs would be more specific if clinically indicated.
[2023-09-30 19:50] VITALS: BP 144/87; PULSE 89; RESP 20; TEMP 36.6; O2SAT 95; BMI 39.7
[2023-09-30 19:59] VITALS: BP 144/87; PULSE 89; RESP 20; TEMP 36.6; O2SAT 95
--- NOTE | 2023-09-30 20:16 | EXP.UTC ---
Discharge Plan Disposition Patient Disposition: Home, Self-Care Condition: Good Prescriptions Prescriptions: No Action glimepiride 2 mg tablet 2 mg PO DAILY Patient Comments: TAKE 1 TABLET BY MOUTH ONCE DAILY. celecoxib [Celebrex] 50 mg Capsule 50 mg PO BID losartan-hydrochlorothiazide 50-12.5 mg tablet 1 tab PO DAILY omeprazole magnesium [Prilosec OTC] 20 mg tablet,delayed release (DR/EC) 20 mg PO BID Referrals Follow up/Referrals: Ceasar Guerra MD [Primary Care Provider] - See instructions Ken Daniels DO [Staff Physician] - See instructions (Call office for appointment) Activity Restrictions/Add. Instructions Additional Instructions/Restrictions: *No weight bearing Use Crutches to get around until you are seen by Orhopedics or podiatry *RICE, Rest the extremity, Ice 15-20 minutes 3-4 times daily, Compress- wear the matthew wrap as discussed as much as possible to help reduce swelling and pain, Elevate the extremity when at rest *Matthew wrap is for support and help control swelling, use it except in the shower. Be sure that is not to tight but not to loose either *Elevate when resting? * Tylenol to help with pain Immediately follow up with your family doctor for new or worsening of symptoms, or no noticeable improvement over the next 3-5 days Clinical Impressions Clinical Impression: Strain of calf muscle Qualifiers: Encounter type: initial encounter Laterality: right Qualified Code(s): S86.811A - Strain of other muscle(s) and tendon(s) at lower leg level, right leg, initial encounter Stand Alone Forms Stand Alone Forms: Work/School Release Instructions Patient Instructions: How to Use Crutches, DI for Calf Muscle Strain, How To Perform RICE (Rest, Ice, Compress, Elevate) Discharge ED Provider: Sharlene Pena [facility] [place] General Stated complaint: [id number]/02@[id number] RT calf inj Mode of Arrival: Ambulatory Source of Information: Patient Limitations: No Limitations Time Seen by Provider: 09/30/23 20:16 Description of Symptoms (Recalled from Triage Doc. by RN): PATIENT STATES HIS LEFT CALF MUSCLE POPPED WHILE AT WORK THIS AFTERNOON HEENT Symptoms (Recalled from RN notes): No Resp Symptoms (Recalled from RN notes): No Skin Symptoms (Recalled from RN notes): No MS Symptoms (Recalled from RN notes): Yes Functional Status (Recalled from RN notes): WNL History of Present Illness Provider Complaint: Patient states that he was at work earlier today and was helping someone push an object up a ramp and felt a pop in his calf area States that since then he has been having pain in his right calf area when he tries to walk or move it certain ways so he came in to get it checked Denies any other injury Related Data Home Medications Medication Instructions Recorded Confirmed celecoxib 50 mg capsule (Celebrex) 50 mg PO BID Rheumatoid arthritis 01/20/23 06/03/23 glimepiride 2 mg tablet 2 mg PO DAILY Diabetes 01/20/23 06/03/23 losartan 50 mg-hydrochlorothiazide 1 tab PO DAILY High blood pressure 01/20/23 06/03/23 12.5 mg tablet omeprazole magnesium 20 mg 20 mg PO BID Acid Reflux 06/03/23 06/03/23 tablet,delayed release (Prilosec OTC) Allergies Allergy/AdvReac Type Severity Reaction Status Date / Time No Known Allergies Allergy Verified 06/03/23 03:40 Worker's Comp Is this a Worker's Comp case?: No [facility] Disclaimer: The information contained in this section may have been updated after the patient was seen, as this information can be updated by other users. Medical History (Updated 09/30/23 @ 21:12 by Sharlene Pena APRN) High blood pressure Rheumatoid arteritis Type 2 diabetes mellitus Social History Smoking Status: Never smoker alcohol intake: never substance use type: denies use current occupational status: employed Travel in the last 8 weeks: Inside the [place] current occupat
--- NOTE | 2023-09-30 20:22 | XR_ITS ---
PROCEDURE INFORMATION: Exam: XR Right Foot Exam date and time: 09/30/2023 8:21 PM Age: 48 years old Clinical indication: Pain; Foot; Right; Additional info: Recommended by radiologist TECHNIQUE: Imaging protocol: Radiologic exam of the right foot. Views: 3 or more views. COMPARISON: CR XR TIBIA FIBULA RT 2V 09/30/2023 7:22 PM FINDINGS: Bones/joints: No fractures. Normal alignment is maintained in the midfoot, hindfoot, and forefoot. Joint spaces are well-maintained. No blastic or lytic lesions. Small os tibialis externum. Normal osseous mineralization. No gross ankle joint effusion. Moderate spurring at the Achilles tendon calcaneal attachment. Soft tissues: No periostitis. No gross soft tissue abnormalities. No radiopaque foreign bodies. Other findings: No osteolysis. Fibro-osseous calcaneonavicular coalition measuring about 11 mm wide on the lateral view with mild sclerosis along the interface. IMPRESSION: 1. Fibro-osseous calcaneonavicular coalition. 2. Calcaneal spurring.
== END 2023-09-30 21:25 | disposition home or self-care (01) ==
PROVIDERS: Emergency Provider Nurse Practitioner; PCP Family Medicine
DX: S86.811A Strain of other muscle(s) and tendon(s) at lower leg level, right leg, initial encounter (principal); E11.9 Type 2 diabetes mellitus without complications; I10 Essential (primary) hypertension; M06.9 Rheumatoid arthritis, unspecified; Z79.84 Long term (current) use of oral hypoglycemic drugs; X50.0XXA Overexertion from strenuous movement or load, initial encounter
CPT/HCPCS: 73590; 73630; 99212; 99214; G0463

== ENCOUNTER → 2023-11-19 09:45 | Outpatient (CLI) | payer OTHER, SELFPAY ==
--- NOTE | 2023-11-19 09:49 | MR_ITS ---
FINAL REPORT CLINICAL HISTORY: Left lower calf pain FINDINGS: Multiplanar MR imaging of the lower leg was performed without contrast. There is no evidence of fracture, bone bruise or marrow edema. No bony mass is identified. There is localized abnormal signal at the inferior extent of the medial head of the gastrocnemius. There is mild edema within the musculature. Some fibers appear irregular, probably related to a small partial tear of the inferior medial head of the gastrocnemius. This is well-seen on image 22 of series 24. There is a small amount of adjacent fluid. IMPRESSION: Small partial tear of the inferior extent of the medial head of the gastrocnemius. Reviewed, Interpreted and Dictated by Manny Abel MD Transcribed by Brielle Stewart Authenticated and [facility]
== END ==
PROVIDERS: PCP Family Medicine; Visit Provider Orthopaedic Surgery
DX: S86.811A Strain of other muscle(s) and tendon(s) at lower leg level, right leg, initial encounter (principal); Y99.9 Unspecified external cause status
CPT/HCPCS: 73718

== ENCOUNTER 2024-05-22 11:49 | Emergency (ER) | payer OTHER, SELFPAY ==
[2024-05-22 12:45] VITALS: BP 158/92; PULSE 91; RESP 18; TEMP 36.8; O2SAT 96; BMI 37.5
--- NOTE | 2024-05-22 13:37 | EXP.UTC ---
Discharge Plan Disposition Patient Disposition: Home, Self-Care Condition: Good Prescriptions Prescriptions: No Action glimepiride 2 mg tablet 2 mg PO DAILY Patient Comments: TAKE 1 TABLET BY MOUTH ONCE DAILY. losartan 50 mg tablet 50 mg PO DAILY Patient Comments: TAKE 1 TABLET BY MOUTH ONCE DAILY Referrals Follow up/Referrals: Ceasar Guerra MD [Primary Care Provider] - See instructions Activity Restrictions/Add. Instructions Additional Instructions/Restrictions: If you have chest pain go to the ER. If dizziness continues follow up with PCP. Clinical Impressions Clinical Impression: Bilateral impacted cerumen Instructions Patient Instructions: DI for Cerumen Impaction Discharge ED Provider: Romelia Lim [facility] General Stated complaint: headache, dizzy Mode of Arrival: Ambulatory Source of Information: Patient Limitations: No Limitations Time Seen by Provider: 05/22/24 13:37 Description of Symptoms (Recalled from Triage Doc. by RN): Pt's symptoms are PRAKASH, and neck pain. HEENT Symptoms (Recalled from RN notes): Yes Resp Symptoms (Recalled from RN notes): No Skin Symptoms (Recalled from RN notes): No MS Symptoms (Recalled from RN notes): No Functional Status (Recalled from RN notes): n/a History of Present Illness Provider Complaint: Pt reports that 2 days ago he experienced some chest pain and has had intermittent dizziness since that time. He reports that he has had a runny nose and frontal headache. He denies taking anything for his symptoms. Related Data Home Medications Medication Instructions Recorded Confirmed glimepiride 2 mg tablet 2 mg PO DAILY Diabetes 01/20/23 05/22/24 losartan 50 mg tablet 50 mg PO DAILY 05/22/24 05/22/24 Allergies Allergy/AdvReac Type Severity Reaction Status Date / Time No Known Allergies Allergy Verified 05/22/24 13:05 Worker's Comp Is this a Worker's Comp case?: No [facility] Disclaimer: The information contained in this section may have been updated after the patient was seen, as this information can be updated by other users. Medical History Rheumatoid arteritis Type 2 diabetes mellitus High blood pressure Social History Smoking Status: Never smoker alcohol intake: never substance use type: denies use current occupational status: employed Travel in the last 8 weeks: Inside the [place] current occupational exposures/hazards: No ROS Obtained: Yes All systems reviewed & no additional complaints except as documented Constitutional Constitutional: Reports system reviewed and no additional complaints, except as documented and Reports headache(s) Eyes Eyes: Reports system reviewed and no additional complaints, except as documented ENT Ears, Nose, Mouth, and Throat: Reports system reviewed and no additional complaints, except as documented, Reports headache(s) and Reports nasal discharge Cardiovascular Cardiovascular: Reports system reviewed and no additional complaints, except as documented and Reports chest pain Respiratory Respiratory: Reports system reviewed and no additional complaints, except as documented Gastrointestinal Gastrointestingal: Reports system reviewed and no additional complaints, except as documented Genitourinary Male Genitourinary: Reports system reviewed and no additional complaints, except as documented Musculoskeletal Musculoskeletal: Reports system reviewed and no additional complaints, except as documented Integumentary/Breasts Skin/Breast: Reports system reviewed and no additional complaints, except as documented Neurologic Neurologic: Reports system reviewed and no additional complaints, except as documented and Reports headache(s) Endocrine Endocrine: Reports system reviewed and no additional complaints, except as documented Hematologic/Lymphatic Henatologic/Lymphatic: Reports system reviewed and no additional complaints, except as documented Allergic/Immunologic Allergic/Immunologic: Reports system reviewed and no additional complaints, except as documented Physical Exam General General appearance: alert and in no apparent distress Head Head exam: atraumatic and normocephalic Eye Eye exam: Present normal appearance ENT ENT exam: Present mucous membranes moist Expanded ENT Exam External ear exam: Present normal external inspection TM/Canal exam: Bilateral TM: cerumen impaction Nose exam: Absent sinus tenderness Nasal speculum exam: Bilateral: other (clear drainage) Mouth exam: Present normal external inspection Teeth exam: Present normal inspection Throat exam: Present normal inspection Neck Neck exam: Present normal inspection Chest Chest inspection: Present normal inspection and symmetric chest wall rise Respiratory Respiratory exam: Present normal lung sounds bilaterally Cardiovascular Cardiovascular exam: Present regular rate, normal rhythm and normal heart sounds Abdominal Exam Abdominal exam: Present soft and normal bowel sounds Back Exam Back exam: Present normal inspection Neurological Exam Neurological exam: Present alert, oriented X3, CN II-XII intact and normal gait Psychiatric Psychiatric exam: Present normal affect and normal mood Skin Skin exam: Present warm, dry and intact Lymphatic Lymphatic Findings: no adenopathy Medical Decision Making Alexander Inquiry Pt receiving controlled substance: No Alexander was queried for this patient: No Vital Signs: 05/22/24 12:45 Temperature 98.2 F Temperature Source Oral Pulse Rate [Right Radial] 91 H Respiratory Rate 18 Blood Pressure [Right Arm] 158/92 H Blood Pressure Mean [Right Arm] 114 Blood Pressure Source [Right Arm] Automatic Cuff Blood Pressure Position [Right Arm] Sitting 02 Sat by Pulse Oximetry 96 Oxygen Delivery Method Room Air Procedures Ear Wax Removal Both Ears: Cerumenolytic Used: other (warm water and baby shampoo) Results: Re-examined: cerumen removed completely TM Examination: TM(s) intact, normal appearance Ear Canal Exam: atraumatic Patient Tolerated Procedure: well and no complications Complications: no problems Technique: ear canal irrigated
[2024-05-22 13:56] VITALS: BP 124/79; BP 139/94; BP 150/93; PULSE 78; PULSE 81; PULSE 89
[2024-05-22 14:37] VITALS: BP 158/92; PULSE 91; RESP 18; TEMP 36.8; O2SAT 96
== END 2024-05-22 14:37 | disposition home or self-care (01) ==
PROVIDERS: Emergency Provider Nurse Practitioner Family; PCP Family Medicine
DX: R51.9 Headache, unspecified (principal); R42 Dizziness and giddiness; H61.23 Impacted cerumen, bilateral
CPT/HCPCS: 69209; 99213; 99214; G0463

== ENCOUNTER 2024-07-17 07:50 | Outpatient (CLI) | payer OTHER, SELFPAY ==
--- NOTE | 2024-07-17 | CA_ITS ---
APPROVED REPORT Exam: Exercise Treadmill Technologist: Monique Sunshine, Ht: 6 ft 1 in Wt: 295 lbs BSA: 2.54 m2 HR: 77 bpm BP: 112/74 mmHg Rhythm: NSR Medical History Medications: Aspirin,,,,, Metoprolol,,,,, Losartan,,,,, Glimepiride,,,,, Cardiac Risk Factors: HTN, Diabetes (non-insulin) Stress Test Details Test: Jl HR Resting HR: 87 bpm Max Heart Rate (APMHR): 172 bpm Max HR Achieved: 147 bpm Target HR (85% APMHR): 146 bpm % of APMHR: 85 Recovery HR: 123 bpm HR response to stress: Normal HR response to stress BP Resting BP: 127.0/70.0 mmHg Max BP: 153.0/80.0 mmHg Recovery BP: 140.0/65.0 mmHg BP response to stress: Normal blood pressure response to stress. ECG Resting ECG: Normal sinus rhythm, T wave changes in inferior leads Stress EC.[address] depression Arrhythmia: PVCs, ventricular couplet during peak stress Clinical Exercise duration: 06:57 min Highest Stage Achieved: Exercise capacity: 10.1 METs Stress ECG Conclusion During jl protocol pt experinced SOB with exercise. SOB and leg fatigue ended test. Ectopy: Occasional PVCs noted. Ventricular couplets with peak exercise. ST changes: 0.[address] depression Conclusion: No evidence of ischemia on ECG at peak stress. GXT only. No Myoview. Test Summary REST . . . . . . . Sitting REST . . . . . . . Standing REST 03:21 0.0 0.0 87 . 127/ 70 . . Stage 1 01:00 10.0 1.7 107 . . . . Stage 1 02:00 10.0 1.7 119 . . . . Stage 1 03:00 10.0 1.7 121 . 141/ 81 . . Stage 2 01:00 12.0 2.5 125 . . . . Stage 2 02:00 12.0 2.5 133 . . . . Stage 2 03:00 12.0 2.5 136 . 153/ 80 . . Stage 3 00:57 14.0 3.4 146 . . . Stop exercise at 06:57 RECOVERY 01:00 0.0 0.0 123 . . . . RECOVERY 02:00 0.0 0.0 108 . . . . RECOVERY 03:00 0.0 0.0 106 . 140/ 65 . . RECOVERY 04:00 0.0 0.0 106 . 145/ 65 . . RECOVERY 04:41 0.0 0.0 107 . 146/ 68 . . Electronically signed by : Naima Pacheco MD 07/26/2024 13:29:41
== END 2024-07-17 23:59 | disposition home or self-care (01) ==
LOC: RT 07:50
PROVIDERS: PCP Family Medicine; Visit Provider Nurse Practitioner Family
DX: R94.31 Abnormal electrocardiogram [ECG] [EKG] (principal); R07.9 Chest pain, unspecified
CPT/HCPCS: 93017; 93018

== ENCOUNTER 2024-08-09 09:00 | Outpatient (CLI) | payer OTHER, SELFPAY ==
--- NOTE | 2024-08-09 09:00 | CT_ITS ---
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 A noncontrast coronary calcium scan was performed. A CT attenuation threshold of 130 Hounsfield units (HU) was used for the detection of calcium in contiguous voxels of 1 sq mm in area to be counted as individual lesions. Bolus tracking in the ascending aorta with a threshold of 180 HU was performed. Immediately afterwards, ECG synchronized cardiac CT was then performed from the cardiac base to apex using retrospective gating with ECG tube current modulation. A total of 85 mL of Isovue 370 mg/mL contrast medium was administered at 5 mL/sec followed by a saline flush using a biphasic injection protocol. A tube voltage of 120 KVp was used. The patient received the following medications prior to the cardiac CT. 125 mg of oral metoprolol 10 mg of intravenous metoprolol 15 mg of oral ivabradine 0.8 mg of sublingual nitroglycerin The average heart rate at the time of acquisition was 62 bpm and regular. Image Reconstruction Transaxial images were reconstructed at 0.67 mm slide thickness. Data was reviewed interactively on an advanced workstation capable of 2 and 3-dimensional displays in all conventional reconstruction formats, including multiplanar reformations, maximum intensity projections, curved multiplanar reformations, and volume rendered reconstructions. When applicable, selected routine images describing the relevant coronary anatomy and pathology were saved and sent to PACS. Complications None Technical Quality Overall image quality was fair. Coronary artery opacification was adequate. Total DLP (Dose-Length Product) is 1674.9 mGy-cm. The reported value represents the total of one or more individual components during the CT acquisition of this date and at this time, and as such, the same value may appear in more than one CT report depending on the interpreting/reporting physicians. COMPARISON None FINDINGS CT Coronary Calcium Scoring LMA (Left Main Artery) = 2 LAD (Left Anterior Descending) = 0 LCX (Left Coronary Circumflex) = 0 RCA (Right Coronary Artery) = 0 Total Calcium Score = 2 using the AJ-130 method. The observed calcium score of 2 is at 64th percentile for subjects of the same age, sex, and race/ethnicity. The interpretation of the calcium heart score is based on the following continuum*: 0 = no calcified plaque detected (risk of coronary artery disease is very low ??? less than 5%) 1-10 = calcium detected in extremely minimal levels (risk of coronary diseases is still low ??? less than 10%) 11-100 = mild levels of plaque detected with certainty (mild or minimal narrowing of heart arteries is likely) 101-400 = definite,at least moderate levels of plaque detected (relatively high risk of a heart attack within 3-5 years) >401-999 = extensive levels of plaque detected (high risk of heart attack, high levels of vascular disease are present, high likelihood of at least one significant coronary narrowing) *The calcium heart score quantifies the burden of coronary calcification/plaque in the coronary arteries. The calcium heart score is not able to evaluate the presence or burden of non-calcified (i.e. soft) plaque. There is no identifiable calcification in the aortic valve, mitral annulus or mitral valve, pericardium, or myocardium. Coronary CT Angiography The coronary arterial system is right dominant. Quantitative Stenosis Grading: Left Main (LM): The left main originates normally from the left sinus of Valsalva. The LM bifurcates into the left anterior descending artery and left circumflex artery. There is a focus of calcification in the distal LM segment, with no evidence of luminal stenosis. Left Anterior Descending (LAD) and Diagonal Branches: The LAD gives off 2 diagonal branch(es). The LAD and its branches are patent with no evidence of atherosclerosis. There is a deep mid LAD-myocardial bridge that measures 2.5 cm in length and 0.6 cm in depth. The corresponding region at the level of the bridge appears stenotic with 50-70% luminal narrowing. Left Circumflex (LCX) and Obtuse Marginals (OM): The LCX gives off 1 Obtuse Marginal (OM) branch(es). The LCX and its branches are patent with no evidence of atherosclerosis. Right Coronary Artery (RCA): The RCA originates normally from the right sinus of Valsalva. The RCA gives off a posterior descending artery (PDA) and posterolateral (PL) branches. The RCA and its branches are patent with no evidence of atherosclerosis. Non-Coronary Cardiac Findings: Analysis of the left ventricular (LV) structure and function was performed after 3-D reconstruction of the LV from axial images, with user-corrected automatic contouring for assessment of LV volumes and user-defined reconstruction from oblique planes for measurement of 3-D cardiac structure and function. -The left ventricle systolic function is normal. -There is no left atrial appendage filling defect. Two right pulmonary veins and two left pulmonary veins drain normally into the left atrium. -No pericardial thickening or calcification. -Central and branch pulmonary arteries in the [id number] are unremarkable. -Thoracic aorta within the visualized thoracic aortic-branches in the [id number] is unremarkable. Extracardiac Structures No significant extra-cardiac findings. Note, however, that this study is focused on the cardiac findings. IMPRESSION -Minimal coronary calcification with an Agatston score = 2 using the AJ-130 method. -The observed calcium score of 2 is at 64th percentile for subjects of the same age, sex, and race/ethnicity. -No evidence of significant flow-limiting atherosclerosis of the coronary arteries. 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 The corresponding region at the level of the myocardial bridge appears stenotic with 50-70% luminal narrowing. -CAD-RADS 1. Management recommendations per ACC/AHA guidelines*, as clinically appropriate. In the setting of deep myocardial bridge with luminal narrowing on CCTA, further evaluation with invasive coronary angiography + FFR is suggested to evaluate for the clinical hemodynamic significance of this finding. *Recommendations: CAD RADS 0: Reassurance. Consider non-atherosclerotic causes of chest pain. CAD RADS 1: Consider non-atherosclerotic causes of chest pain. Consider preventive therapy and risk factor modification. CAD RADS 2: Consider non-atherosclerotic causes of chest pain. Consider preventive therapy and risk factor modification, particularly for patients with nonobstructive plaque in multiple segments. CAD RADS 3: Consider further functional testing. Consider symptom-guided anti-ischemic and preventive pharmacotherapy as well as risk factor modification per published guideline statements. CAD RADS 4A: Consider further functional testing or invasive coronary angiography with revascularization per published guideline statements. Consider symptom-guided anti-ischemic and preventive pharmacotherapy as well as risk factor modification per published guideline statements. CAD RADS 4B: Invasive coronary angiography recommended with revascularization per published guideline statements. Consider symptom-guided anti-ischemic and preventive pharmacotherapy as well as risk factor modification per published guideline statements. CAD RADS 5: Consider invasive angiography and/or viability assessment with revascularization per published guideline statements. Consider symptom-guided anti-ischemic and preventive pharmacotherapy as well as risk factor modification per published guideline statements. CRITICAL RESULT None COMMUNICATION Per this written report The coronary and cardiac findings of this CCTA were reviewed, reported, and signed by Broderick Pacheco MD (Wound Care Specialist) Conclusion Electronically signed by : Naima Pacheco MD 08/10/2024 11:51:58
[2024-08-09 09:15] VITALS: BP 145/72; PULSE 83; RESP 18; O2SAT 98
[2024-08-09] MEDS: IVABRADINE HCL 7.5MG TABLET PO (09:17)
[2024-08-09] MEDS: METOPROLOL TARTRATE 50MG TABLET PO ×2 (09:18→10:03)
[2024-08-09] MEDS: METOPROLOL TARTRATE 25MG TABLET 25 MG (09:18)
[2024-08-09 09:44] LABS: Alanine Aminotransferase 34 U/L (12-78); Albumin Level 3.6 g/dl (3.5-5.0); Albumin/Globulin Ratio 1.3 (1.1-1.8); Alkaline Phosphatase 59 U/L (38-126); Anion Gap 5.2 mEq/L (5-15); Aspartate Amino Transferase 27 U/L (17-59); Bilirubin,Total 0.9 mg/dl (0.2-1.3); Blood Urea Nitrogen 11 mg/dl (9-20); Calcium 8.6 mg/dl (8.4-10.2); Carbon Dioxide 30 mmol/L (22.0-30.0); Chloride 107 mmol/L (98-107); Estimated Glomerular Filt Rate 103 ml/min (>60); GFR (African American) 124 ML/MIN (>60); Globulin 2.7 g/dL (1.3-3.2); Glucose 139 mg/dl (74-100); Potassium 4.2 mmoL/L (3.5-5.1); Sodium 138 mmol/L (136-145); Total Protein,Serum 6.3 g/dl (6.3-8.2)
[2024-08-09 10:50] VITALS: BP 119/65; PULSE 68; RESP 18; O2SAT 98
[2024-08-09] MEDS: METOPROLOL TARTRATE 5MG/5ML VIAL 5 MG IV ×2 (10:55→11:00)
[2024-08-09] MEDS: NITROGLYCERIN 0.4MG SL TABLET SL (10:55)
[2024-08-09 11:00] VITALS: BP 93/59; PULSE 65; RESP 18; O2SAT 98
[2024-08-09 11:05] VITALS: BP 106/57; PULSE 57; RESP 18; O2SAT 98
[2024-08-09 11:10] VITALS: BP 123/65; PULSE 68; RESP 18; O2SAT 98
[2024-08-09] MEDS: 0.9 % SODIUM CHLORIDE 50 ML VIAL IV (11:13)
[2024-08-09] MEDS: IOPAMIDOL-370 (76%);100ML BOTTLE 85 ML IV (11:13)
[2024-08-09] MEDS: SODIUM CHLORIDE 0.9% 10ML SYR (RAD ONLY) 10 ML IV (11:13)
[2024-08-09 11:29] VITALS: BP 115/63; PULSE 60; RESP 18; O2SAT 99
== END 2024-08-09 11:30 | disposition home or self-care (01) ==
PROVIDERS: PCP Family Medicine; Visit Provider Nurse Practitioner Family
DX: R07.89 Other chest pain (principal); R94.31 Abnormal electrocardiogram [ECG] [EKG]
CPT/HCPCS: 75574; 80053; Q9967

== ENCOUNTER 2024-09-13 07:58 | Day surgery (SDC) | payer OTHER, SELFPAY ==
[2024-09-13] VITALS (11 sets, daily range): BP systolic 98–200; BP diastolic 50–104; PULSE 67–91; RESP 18–20; TEMP 36.9; O2SAT 95–99; BMI 42.7
--- NOTE | 2024-09-13 07:07 | IR_ITS ---
APPROVED REPORT Patient Location: Outpatient Roll Up Operator: Bhavesh Velázquez, RT (R) PROCEDURES Selective coronary angiogram INDICATION Abnormal CCTA, Angina pectoris Informed consent was obtained prior to the procedure. COMPLICATIONS none Estimated Blood Loss: less than 10ml TECHNIQUE One percent lidocaine used to anesthetize the right anterior aspect of the wrist. The right radial artery was accessed via the Seldinger technique. A 6 [place]i sheath was placed in the right radial artery. 2.5 mg of Verapamil, 800 mcg of nitroglycerin, 1mg Lidocaine and 5000 U Heparin were given through the arterial sheath. The 6 [place]i JL 3 guide catheter was used to perform selective coronary angiogram. At the end of the procedure the sheath was removed good hemostasis was achieved using Traclet band, patient was transferred to the postop holding area in stable condition. ANGIOGRAPHIC RESULTS The left main artery Normal The left anterior descending artery Is proximally normal and then there is a smaller caliber vessel in the midportion and then distally the vessel tapers prior to reaching the apex. There is no atherosclerotic plaque throughout The circumflex artery Nondominant yet large and normal The right coronary artery Dominant with proximal and mid vessel 10% luminal regularities The HAWK ventriculogram reveals Not performed The left ventricular end-diastolic pressure Not measured IMPRESSION Anatomically small LAD which does not reach the apex Mild luminal regularities all of which are nonocclusive PLAN 1. Risk factor modification 2. Medical management Electronically signed by : London Dunlap MD 09/13/2024 12:13:00
[2024-09-13 08:51] LABS: Basophils # 0.1 K/mm3 (0-0.2); Basophils % 0.9 % (0.1-2.0); Eosinophils # 0.1 K/mm3 (0.0-0.4); Eosinophils % 1.9 % (0.1-12.0); Hematocrit 47.4 % (42.0-52.0); Hemoglobin 16.2 g/dL (14.1-18.0); Lymphocytes # 1.6 K/mm3 (0.7-4.5); Lymphocytes % 22.1 % (10-50); Mean Corpuscular HGB Conc 34.2 g/dL (31.8-35.4); Mean Corpuscular Hemoglobin 31.1 pg (27.0-31.2); Mean Corpuscular Volume 90.8 fl (80-94); Mean Platelet Volume 7.4 fl (7.4-10.4); Monocytes # 0.5 K/mm3 (0.1-1.0); Monocytes % 6.6 % (1.7-9.3); Neutrophils % 68.4 % (37.0-80.0); Platelet Count 238 K/mm3 (142-424); Red Blood Count 5.22 M/mm3 (4.60-6.20); Red Cell Distribution Width 13.4 % (11.5-17.5); White Blood Count 7.3 K/mm3 (4.8-10.8)
[2024-09-13 08:55] LABS: Chloride 106 mmol/L (98-107); Potassium 4.1 mmoL/L (3.5-5.1); Sodium 139 mmol/L (136-145)
[2024-09-13 08:58] LABS: Anion Gap 11.1 mEq/L (5-15); Blood Urea Nitrogen 15 mg/dl (9-20); Calcium 9.1 mg/dl (8.4-10.2); Carbon Dioxide 26 mmol/L (22.0-30.0); Creatinine Clearance Estimated 106 mL/min (50-200); Estimated Glomerular Filt Rate 90 ml/min (>60); GFR (African American) 109 ML/MIN (>60); Glucose 175 mg/dl (74-100)
[2024-09-13] MEDS: LIDOCAINE 1% 10ML MDV 20 ML IJ (11:40)
[2024-09-13] MEDS: VERAPAMIL 2.5MG/ML 2ML VIAL 2.5 MG IV (11:40)
[2024-09-13] MEDS: HEPARIN 1,000 UNITS/500ML NS (CATH LAB) 3000 UNIT IV (11:40)
[2024-09-13] MEDS: diphenhydrAMINE 50MG/ML VIAL 50 MG IV (11:40)
[2024-09-13] MEDS: 0.9 % SODIUM CHLORIDE 500 ML 25 ML IV (11:40)
[2024-09-13] MEDS: MIDAZOLAM HCL 1MG/1ML 5ML VIAL 1 MG IV (11:41)
[2024-09-13] MEDS: FENTANYL 100MCG/2ML VIAL 50 MCG IV (11:41)
[2024-09-13] MEDS: HEPARIN 1,000 UNITS/ML 10ML VIAL (CATH LAB) 10000 UNIT IV (11:41)
[2024-09-13] MEDS: NITROGLYCERIN 800MCG/8ML SYR (CATH LAB) 800 MCG IA (11:41)
[2024-09-13] MEDS: IOPAMIDOL-370 (76%);100ML BOTTLE 50 ML IV (12:45)
== END 2024-09-13 14:47 | disposition home or self-care (01) ==
PROVIDERS: PCP Family Medicine; Visit Provider Internal Medicine
DX: I20.9 Angina pectoris, unspecified (principal); E11.9 Type 2 diabetes mellitus without complications; I10 Essential (primary) hypertension; Q24.5 Malformation of coronary vessels; R93.1 Abnormal findings on diagnostic imaging of heart and coronary circulation; R94.31 Abnormal electrocardiogram [ECG] [EKG]; Z79.899 Other long term (current) drug therapy; Z79.84 Long term (current) use of oral hypoglycemic drugs
CPT/HCPCS: 80048; 85025; 93454; 99152; C1725; C1769; J1200; J1644; J2250; J3010; Q9967